=== PATIENT | male | born 1985 | race Caucasian/White ===

== ENCOUNTER → 2018-10-18 12:31 | Outpatient (CLI) | payer OTHER, SELFPAY ==
--- NOTE | 2018-10-18 | DI.RAD.S_ITS ---
PROCEDURE: XR FINGER RT MIN 2V INDICATIONS: Right 5TH FINGER TRAUMA TECHNIQUE: AP hand, 2 views of the fifth finger(s) acquired. COMPARISON: None. FINDINGS: Bones: No fractures or dislocations. No suspicious bony lesions. Soft tissues: No suspicious soft tissue calcifications. IMPRESSION: Normal for age, source of current persistent fifth digit pain symptoms is not seen. Dictated by: Eugenio Ashby M.D. on 10/18/2018 at 17:40 Approved by: Eugenio Ashby M.D. on 10/18/2018 at 17:41
== END ==
PROVIDERS: Visit Provider Family Medicine
DX: S69.91XA Unspecified injury of right wrist, hand and finger(s), initial encounter (principal)
CPT/HCPCS: 73140

== ENCOUNTER → 2020-09-01 10:27 | Outpatient (CLI) | payer OTHER, SELFPAY ==
--- NOTE | 2020-09-01 | DI.RAD.S_ITS ---
PROCEDURE: XR HAND RT MIN 3V INDICATIONS: RIGHT HAND PAIN TECHNIQUE: 3 views of the hand(s) acquired. COMPARISON: None. FINDINGS: Bones: No fractures or dislocations. Carpal bones are normally aligned. No suspicious bony lesions. Soft tissues: No suspicious soft tissue calcifications. IMPRESSION: Normal right hand Dictated by: Wilmer Park M.D. on 09/01/2020 at 10:54 Approved by: Wilmer Park M.D. on 09/01/2020 at 11:10
== END ==
PROVIDERS: Referring Provider Family Medicine; Visit Provider Family Medicine
DX: M79.641 Pain in right hand (principal)
CPT/HCPCS: 73130

== ENCOUNTER → 2023-08-31 14:31 | Outpatient (CLI) | payer OTHER, SELFPAY ==
--- NOTE | 2023-08-31 14:37 | DI.RAD.S_ITS ---
PROCEDURE: XR SHOULDER RT MIN 2V INDICATIONS: RIGHT SHOULDER PAIN TECHNIQUE: 3 views of the shoulder were acquired. COMPARISON: None. FINDINGS: Bones: A subtle lucency is noted within the right humeral head with trace marginal sclerosis. No acute fracture or dislocation. No joint space narrowing. Soft tissues: No suspicious soft tissue calcifications. IMPRESSION: Subtle lucent bone lesion at the right femoral head. If the patient endorses atraumatic pain in this region, consider further characterization with MRI. Dictated by: Taylor Lee M.D. on 08/31/2023 at 16:41 Approved by: Taylor Lee M.D. on 08/31/2023 at 16:43
== END ==
PROVIDERS: Referring Provider Family Medicine; Visit Provider Family Medicine
DX: S46.011A Strain of muscle(s) and tendon(s) of the rotator cuff of right shoulder, initial encounter (principal); M89.9 Disorder of bone, unspecified; X58.XXXA Exposure to other specified factors, initial encounter
CPT/HCPCS: 73030

== ENCOUNTER 2025-01-25 15:21 | Emergency (ER) | payer OTHER, SELFPAY ==
[2025-01-25 15:26] VITALS: BP 133/71; PULSE 83; RESP 20; TEMP 36.6; BMI 34.4
--- NOTE | 2025-01-25 15:47 | ED_ITS ---
<Statement entered by Maximus Bashir, DO - 01/25/25 19:25> Co-sign statement: I was available for consultation during this patient's emergency department visit. This chart is being signed by myself for administrative purposes only. I do not have direct contact with this patient during this visit. They were seen independently by the [facility]. HPI - Eye Problem General Chief complaint: Eye Problems Stated complaint: small foreign object in R eye Time Seen by Provider: 01/25/25 15:40 Mode of arrival: Ambulatory History of Present Illness HPI Narrative: 40-year-old male presents with concern for possible foreign body in his right eye. 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 He was wearing safety glasses however a flake of metal he believes came up and hit his face and bounced underneath the glasses and into his eye. He states when it 1st occurred he felt pain in the middle was hot. The pain resolved quickly. He looked in his eye in the mirror and thought he saw a line of darkness in his eye that could have been metal. The corporate safety manager at his job site immediately flushed his eye with an eye flush wash. And he came to the ER for further evaluation. Patient states that his vision feels normal. He does not have any pain with blinking or moving his eye. He does state that there is very slight irritation of the eye since these events happened. He denies headache, or any other symptoms or concerns. Patient states that he is insured through work with [employer] and has shared his workers insurance card with registration to submit for reimbursement. States there is no associated additional paperwork. Related Data Allergies Allergy/AdvReac Type Severity Reaction Status Date / Time ceftriaxone (From Rocephin) Allergy Verified 01/25/25 15:26 Review of Systems Review of Systems Narrative: See HPI Patient History Smoking Status: Current every day smoker tobacco type: cigarettes Exam Narrative Exam Narrative: GENERAL: [40] year old patient appears stated age. Well-developed patient, in mild distress. HEAD: Atraumatic. Normocephalic. EYES: There is no photophobia. Pupils equal round and reactive. Extraocular motions intact and pain-free. No scleral icterus. There is very mild injection of the right eye without drainage. There is no edema or visible injury to the eye with exam under magnification. Fluorescein exam also completed with darkened room under cobalt blue light and there is no dye uptake noted. No foreign body or abrasion/injury found. ENT: Nose without bleeding, purulent drainage. Airway patent. NECK: Trachea midline. CARDIOVASCULAR: Regular rate and rhythm RESPIRATORY: No increased work of breathing or respiratory distress EXTREMITIES: Moving all extremities, normal gait NEURO: AOx3. SKIN: No rash or erythema of visible areas Initial Vital Signs Initial Vital Signs: Vital Signs Temperature 97.8 F 01/25/25 15:26 Pulse Rate 83 01/25/25 15:26 Respiratory Rate 20 01/25/25 15:26 Blood Pressure 133/71 01/25/25 15:26 Oxygen Delivery Method Room Air 01/25/25 15:26 Course Orders Ordered: Discontinued Medications Fluorescein Sodium (Fluorescein 1 Mg Strip) 1 mg EYE-RIGHT NOW ONE Stop: 01/25/25 15:42 Last Admin: 01/25/25 16:39 Dose: 1 mg Proparacaine HCl (Proparacaine 0.5% Ophth Mitzy) 1 drops EYE-RIGHT NOW ONE Stop: 01/25/25 15:42 Last Admin: 01/25/25 16:38 Dose: 1 drop Vital Signs Vital signs: Vital Signs - 8 hr 01/25/25 15:26 01/25/25 16:42 Temperature 97.8 F Pulse Rate 83 88 Respiratory Rate 20 16 Blood Pressure 133/71 120/70 Pulse Oximetry 98 Oxygen Delivery Method Room Air Room Air MDM - Eye Problem Differential Diagnosis Differential diagnosis: Likely corneal abrasion and other (Corneal foreign body, superficial corneal burn, conjunctival injection, feared concern not found, normal eye exam, work injury) MDM Narrative Medical decision making narrative: 40-year-old male presents with concern for possible foreign body in his right eye after grinding stainless steel with a jig grinder. I was flushed out at his job site copiously by environmental health and safety manager. On arrival he had no pain and normal visual acuity. Exam did not show any evidence of foreign body or injury to the eye. We discussed antibiotics however he declines these. He was advised to seek re- evaluation with Ophthalmology or return to the emergency department if he develops new symptoms such as headache, vision change, eye pain or pressure redness swelling or any other symptoms of concern. He was in agreement with the plan. Return precautions provided, follow-up plan discussed, all questions answered. Discharge Plan Departure Patient Disposition: Home Clinical Impression: Injected eye, right Activity Restrictions/Additional Instructions: *You have been diagnosed with [eye injection/irritation, no foreign body found] *What to do: *Please continue to take your regular medications as directed. [ ] New medication prescriptions sent to your pharmacy: [ ] [ ] New medication written as a paper prescription [ X] No new medications given *Please follow up with your primary care provider in 2-3 days, call for an appointment. Let them know you were seen in the Emergency Department and that we ask that you be seen in follow up. We will electronically transmit a record of today's note if your PCP is in our system. You came in today with a possible foreign body metal in her eye after using a jig grinder at work. Your corporate safety manager had flushed your eye out prior to coming to the ER. On exam you have normal visual acuity, normal eye exam and exam with fluorescein dye was performed under magnification. We do not see any foreign body present and based on your exam, believe that the metal that flew into your eye was likely washed out by the corporate safety manager when they flushed your eye. If you do develop eye pain, vision change, new headache or eye pressure or any other symptoms of concern please make sure you seek re-evaluation immediately with zinc plater or return to the ER. I do recommend antibiotics both because you did have a foreign body in her eye earlier today and because you may have sustained a superficial burn to your cornea because you had a hot object hit your eye. However you have declined these. Please monitor carefully for signs of infection including increasing redness, swelling, pain or irritation of your eye or any other symptoms of concern and make sure you seek re-evaluation. *If you do not have a primary care provider please contact the [facility] Resource line at [phone]. They will ask some questions about your medical history and help get you set up with a doctor in the community. *Return to Emergency Department if you should have any new, worsening or concerning symptoms, such as [fever greater than 101 F, shaking chills, worsening pain, persistent vomiting or other bothersome symptoms] Stand Alone Forms: Patient Portal/API
[2025-01-25] MEDS: PROPARACAINE 0.5% OPHTH SOL 1 DROPS EYE-RIGHT (16:38)
[2025-01-25] MEDS: FLUORESCEIN 1 MG STRIP EYE-RIGHT (16:39)
[2025-01-25 16:42] VITALS: BP 120/70; PULSE 88; RESP 16; O2SAT 98
== END 2025-01-25 16:48 | disposition home or self-care (01) ==
PROVIDERS: Emergency Provider Student in an Organized Health Care Education/Training Program
DX: S05.91XA Unspecified injury of right eye and orbit, initial encounter (principal); H57.9 Unspecified disorder of eye and adnexa
CPT/HCPCS: 99282